=== PATIENT | female | born 1980 | race Caucasian/White ===

== ENCOUNTER 2022-05-03 10:05 | Outpatient (CLI) | payer OTHER, SELFPAY ==
[2022-05-03 10:50] LABS: Basophils Percent Auto 0.2 % (0.2-1.2); Eosinophils Absolute Auto 0.1 K/mm3 (0-0.3); Eosinophils Percent Auto 1.8 % (0-4.4); Hemoglobin 13.2 g/dL (12.0-15.0); Immature Granulocyte Absolute 0.01 K/mm3 (0.00-0.031); Immature Granulocyte Percent A 0.2 % (0-0.5); Lymphocytes Absolute Auto 1.69 K/mm3 (0.9-3.2); Lymphocytes Percent Auto 27.4 % (18.3-44.2); Mean Corpuscular HGB Conc 32.2 g/dl (32-36); Mean Corpuscular Hemoglobin 26.1 pg (26-34); Mean Corpuscular Volume 81.2 fl (80-100); Monocytes Absolute Auto 0.5 K/mm3 (0.1-0.6); Monocytes Percent Auto 7.6 % (2.6-8.5); Neutrophils Absolute Auto 3.9 K/mm3 (1.3-6.7); Neutrophils Percent Auto 62.8 % (45.5-73.1); Platelet Count Result 166 k/mm3 (150-375); Red Blood Count 5.05 M/mm3 (4.2-5.4); Red Cell Distribution Width 13.2 % (11.5-14.5); White Blood Count 6.2 K/mm3 (4.5-10.0)
== END 2022-05-03 10:06 | disposition home or self-care (01) ==
PROVIDERS: Obstetrics & Gynecology; PCP Family Medicine; Visit Provider Surgery Plastic and Reconstructive Surgery
DX: Z01.818 Encounter for other preprocedural examination (principal); R10.2 Pelvic and perineal pain
CPT/HCPCS: 36415; 85025; 86850; 86900; 86901

== ENCOUNTER 2022-05-11 17:20 | Inpatient (IN) | payer OTHER, SELFPAY ==
[2022-04-29 14:34] VITALS: BMI 30.9
--- NOTE | 2022-04-29 14:47 | PC.NURSE ---
Report to the Outpatient Waiting Room, entrance under the green pavilion located off [facility], at time 6:00 on date 05/11/22. Planned Procedure Time: 7:30. Time changes happen often and if your time is changed the preop area will call you the afternoon before. - You and your visitor will be asked to self-screen and do not enter if you have any COVID symptoms. - Only one visitor is requested with a max of two and NO children visitors are allowed at this time. - The patient visitor may be requested to leave or wait in car when not with patient due to distancing restrictions. - A mask is optional within the hospital. Patients may have clear liquids (water, carbonated beverages, clear teas, apple juice) until 3 hours prior to surgery (4:30) with a maximum of 20 ounces. - No food from midnight until time of surgery Take the following medications with a SIP of water the morning of surgery: CELEXA Medications to discontinue per physician: N/A Date to take last dose: N/A Please no make-up, nail turkmen, hairspray, perfume, deodorant, or body powder the day of surgery. No jewelry (including any body piercings) or valuables the day of surgery, leave them at home. Please take a shower or bath the night before, or the morning of, surgery with an antibacterial soap. Wear comfortable, loose fitting clothing. - Jewelry must be removed prior to entering the operating room. Rings and piercings that are not removed may be cut off. - The hospital will not accept responsibility for valuables. - Please leave all valuables, including medications, at home the day of surgery. If you are going home after surgery, a licensed route driver must drive you home. - NO public transportation without another adult if you receive anesthesia. - We recommend that an adult stay with you for 24 hours following discharge. - We also recommend that you do not drive, make important decision, drink alcoholic beverages, or take any drugs that were not prescribed by your health care provider for at least 24 hours after your discharge time. Follow any additional instructions given to you from your surgeon. If you or anyone in your household have experienced Covid symptoms in the past week, please notify your surgeon or the nurse liaison at the phone number below for possible testing. Telephone instructions given to PT - BASILIO JOSHUA and asked if any additional questions and then verbalized understanding. Patient advised to call surgeon office or pre surgery nurse liaison [phone] if any additional questions.
[2022-05-11] VITALS (13 sets, daily range): BP systolic 99–121; BP diastolic 54–92; PULSE 82–109; RESP 11–18; TEMP 36.2–37.8; O2SAT 98–100
--- NOTE | 2022-05-11 06:55 | P.PNAN_ITS ---
Anes - Initial Pre Proc Eval Procedure: Operation Date: 05/11/22 07:30 Proposed Procedures p Abdominoplasty with Liposuction - Rojas Lara MD s Total Abdominal Hysterectomy, Bilateral Salpingectomy, Possible Supracervical Hysterectomy with Bilateral Salpingectomy, Cystoscopy - Hawa Starr MD Date/Time: 05/11/22 06:55 Surgeon: Rojas Lara MD Pre Op Diagnosis: pelvic and perineal pain,endometrial cyst Patient Data Age: 41 Gender: F Height: 1.52 m Weight: 76.8 kg Last Vital Signs Temp 36.5 C 05/11/22 06:41 Pulse 94 05/11/22 06:41 Resp 16 05/11/22 06:41 BP 110/71 05/11/22 06:41 Pulse Ox 100 05/11/22 06:41 O2 Del Method Room Air 05/11/22 06:41 Allergies Allergy/AdvReac Type Severity Reaction Status Date / Time Pertussis Vaccines Allergy Fever Verified 05/11/22 06:36 Home Medications Medication Instructions Recorded Confirmed Type citalopram 20 mg tablet 20 mg PO DAILY 07/29/21 05/11/22 History cetirizine 10 mg tablet (Zyrtec) 10 mg PO DAILY 04/29/22 05/11/22 History docusate sodium 100 mg capsule 100 mg PO BID 04/29/22 05/11/22 History (Colace) dulaglutide 0.75 mg/0.5 mL 0.75 mg subcut WEEKLY 04/29/22 05/11/22 History subcutaneous pen injector (Trulicity) Patient hx anesthesia problems: none Family hx anesthesia problems: none Results Review: All pre-operative results and documents have been reviewed as part of the pre- operative evaluation. [facility] Past Medical History Medical History (Updated 05/11/22 @ 06:55 by Jose Manuel Rivera MD) Obesity PCOS (polycystic ovarian syndrome) Surgical History Surgical History (Updated 05/11/22 @ 06:57 by Jose Manuel Rivera MD) H/O hand surgery H/O laparoscopy History of section Social History Social History Smoking status: Former smoker Tobacco type: cigarettes Additional smoking assessment comments: SOME [employer]MO[employer] Alcohol intake: current Drinks per week: 3 Substance use: never Substance use type: does not use Living arrangements: with family Spiritual care concerns: No Anes - Eval Final PreProcedure Day of Procedure 05/11/22 06:55 Patient weight: obese Heart: regular rate and rhythm Lungs: clear to auscultation Airway: Mallampati scale class II Neurological: alert and oriented Last oral intake: >/= 8 hours ASA classification: II Emergent: no Anesthetic plan: proceed Anesthesia type and monitoring: general ETT and standard monitoring Results Review: All pre-operative results and documents have been reviewed as part of the pre- operative evaluation. Informed Consent: The patient's anesthetic plan and its attendant risks and benefits were discussed with the patient/family/POA. Questions were solicited and answers provided to the satisfaction of the patient/family/POA.
--- NOTE | 2022-05-11 07:00 | WPDHPUPDATE1 ---
History and Physical Update Update Date/Time: 05/11/22 07:00 History and Physical has been reviewed, including an updated exam of the patient. There are NO changes in the patient's condition. Risks, benefits, and alternatives have been discussed and questions answered. Patient agrees to proceed with procedure.
[2022-05-11] MEDS: LACTATED RINGERS 1,000 ML 30 ML IV CONT (07:05)
[2022-05-11] MEDS: ACETAMINOPHEN 500 MG TABLET 1000 MG PO (07:14)
[2022-05-11] MEDS: KETOROLAC 15 MG/ML VIAL (*BKC) IV PUSH ×2 (07:15→23:32)
[2022-05-11] MEDS: SCOPOLAMINE 1.5 MG PATCH TRANSDERM (07:15)
[2022-05-11 07:20] LABS: Urine Cotinine NEGATIVE
--- NOTE | 2022-05-11 07:31 | WPDHPUPDATE1 ---
History and Physical Update Update Date/Time: 05/11/22 07:31 Ms Black is here for procedure with Dr Paul combined with a open abdominal hysterectomy. She has a history of AUB/pelvic pain and laparoscopy in past showed anterior wall adhesions of uterus from bladder to fundus. She had a bladder injury with her last section which was repaired and she had a rogers catheter in for 1 week post srugery. She is aware of the possiblity of this happening again if adhesions are incorporataing the bladder tissue. Risk/benefits/alnternatives discussed. Plan is to move forward with abominal hysterectomy, possible supracervical hysterectomy and cystoscopy. Plan is also since its open to stay over night History and Physical has been reviewed, including an updated exam of the patient. There are NO changes in the patient's condition. Risks, benefits, and alternatives have been discussed and questions answered. Patient agrees to proceed with procedure.
[2022-05-11] MEDS: LACTATED RINGERS IRRIG 1,000 ML, LIDOCAINE HCL 1% LOCAL INJ 50 ML, EPINEPHrine HCL INJ ... INFILTRATE (07:51)
[2022-05-11] MEDS: BUPIVACAINE/EPINEPHRINE 0.5% 10 ML VIAL 60 ML INFILTRATE (07:51)
[2022-05-11] MEDS: ceFAZolin 2 GM/D5W 50 ML 2 GM/50 ML BAG IVPB (08:02)
[2022-05-11] MEDS: TRANEXAMIC ACID 1,000MG/ISO100 1,000 MG/100 ML BAG 200 MG IVPB (08:07)
[2022-05-11] MEDS: METHYLENE BLUE 0.5% INJ 10 ML AMPULE 20 ML IRRIGATION (10:25)
--- NOTE | 2022-05-11 11:06 | W.PM.PROC2 ---
Procedure Note - Detailed Date of Procedure 05/11/22 Pre-op Diagnosis pelvic and perineal pain,endometrial cyst Post-op Diagnosis Other (Pelvic and perineal pain, Uterine adhesions to anterior abdominal wall, endometrial cyst) Procedure Performed Total abdominal hysterectomy with bilateral salpingectomy and cystoscopy. Extensive lysis of adhesions of uters to anterior abdominal wall and omentum to uterus. Surgeon Hawa Starr MD Driver License Examiner Wily Cool MD Anesthesia General Indications Pelvic pain. She had history of cesearean section and with bladder injury after surgery and wore a rogers for one week. She came to ut with AUB and pelvic pain > Laparoscopy last summer revealed uterus adhesed fully to anterior abdominal wall so consented for hysterectomy. Findings Uterus, elongated cervix, adehesion of omentum and uterus to anterior abdominal wall. 1 hr of lysis of adhesions/dissection scar tissue were performed. Description of Procedure The patient was placed in dorsal lithotomy in Juice stirrups. A rogers catheter was placed. A Osiris uterine retractor was placed and 8cc of fluid was placed in the balloon. The tenaculum removed and the uterine manipulator was checked and in position so the drape pulled over and attention was then turned to the abdomen. 0.5% marcaine with epinephrine used to inject the skin and a scalpel used to incise the skin in a previously marked incision by the plastic surgeon who will be operating after ut. The incision was carried down to the fascia with Bovie cautery. There was significant density to the anterior abdominal wall from scarring from previous surgery. Once to fascia, incision in midline made with scalpel. It was carefully extended laterally with castellano scissors bilaterally. Kochers were used to grasp the fascia and tent upward. The anterior fascia plane was blurred. So we started inferiorly and dissected down the rectus muscle with bovie and blunt dissection. The anterior leaf was grasp and tented. The bovie was used to create a plane under the fascia and dissect laterally bilateral with bovie as well. The midline of rectus muscles was also densely scarred. A finger was used to enter in low and to the right where from previous laparoscopy I knew there was a window. The rectus muscles were dissected in the midline slowly down to the peritoneum. The bladder seemed to wrap toward the left and high. So with careful but lengthly dissection, the peritoneum was identified and slowly dissected towards the midline carefully avoiding injury the bladder . Once able to enter into the peritoneum on the right I could then wrap a finger around the back of the fundus and feel omentum adhesed. No bowel was involved. So the bovie was then used to take down the adhesions between the anterior abdominal wall and the uterus and come down over my finger through the omentum. This freed the right cornua. And similar this was done on the left. Once the fundus was freed, the lower uterine segment bladder flap which was high up on the anterior wall of the uterus, was carefully dissected downward with metzenbaum scissors. Once anatomy was restored. The uterus was elevated and tilted towards the right. The round ligament grasp to help pull the uterus medial. the left fallopian tube was grasp with mery and the fimbriae were identified. The 5mm ligasure used to cauterize through the tuboovarian ligament. Then along through the broad ligament to the left lateral side wall of the uterus. I then went through the round ligament and down the side wall with good hemostasis. The posterior leaf was then opened and carried down posteriorly and the anterior broad ligament was opened. The right fallopian tube was then exposed as the uterus was pulled towards the left. The fimbria identified and the tuboovarian ligament was cauterized with the 5mm ligasure. This was taken through the broad ligament to the lateral sidewall of the uterus. Th
[2022-05-11] MEDS: ceFAZolin SODIUM 1 GM VIAL IV PUSH (12:01)
--- NOTE | 2022-05-11 14:30 | W.PM.PROC2 ---
Procedure Note - Detailed Date of Procedure 05/11/22 Pre-op Diagnosis Skin laxity localized adipsoity Post-op Diagnosis Same Procedure Performed Progressive tension abdominoplasty with suction lipectomy Surgeon Rojas Lara MD Anesthesia General Findings Abdominal tissue removed 1,375.9 grams Lipoaspirate 2,100 cc Description of Procedure They are here today for abdominoplasty with suction lipectomy in conjunction with Gynecology Previously and again today the risks, benefits, alternatives were discussed in extensive detail. I wanted them to be very realistic about the risks involved as well as expectations. We discussed aftercare and what to monitor for. I was very upfront about the risks of wound breakdown leading to loss of skin, open wounds, and need for additional procedures with permanent abdominal deformity. We discussed DVT/PE risks and management. Made sure answered all of their questions to their satisfaction today and consent was obtained. They were marked in the preoperative holding area with their verification. The patient was taken to the operating room placed supine on the operating table. Anesthesia was provided by anesthesiology. A Rodríguez catheter was started. Gynecology At this point Total abdominal hysterectomy with bilateral salpingectomy and cystoscopy.? Extensive lysis of adhesions of uters to anterior abdominal wall and omentum to uterus. See Dr. Starr note for details. Abdomen After complete by Dr. Starr they were prepped and draped in a standard sterile 360 degree fashion. A surgical time-out was taken. I placed the patient in a flexed position to verify the upper and lower markings would reach. I then placed supine. A thorough abdominal examination was completed. Stab incisions were made and tumescent solution infiltrated. Once adequate time was allowed for hemostasis a 5mm basket cannula was utilized to complete suction lipectomy based on S.A.F.E. technique in multiple planes and passes. There were turned to bilateral lateral decubitus position with care taken to protect them for injury during this process. Suction lipectomy continued to result based on pre-operative planning, intra-operative observation, and rolling pinch test which were in full agreement. A 10 blade was used to make the upper incision. I continued dissection down to the level of fascia. Elevated just what was necessary for repair of the diastasis. I then again flexed the bed to verify the upper skin flap would reach the lower markings without tension. Once verified I placed her supine once again and a 10 blade used to make the lower incision. I elevated up to level the umbilicus and left the umbilicus intact on a well-vascularized stalk. The intervening tissue was removed. A 2 mm blunt cannula with 0.5% bupivicaine was injected deep to the fascia bilaterally. I plicated the diastasis recti using 0 PDO stratafix barbed suture. This was in 2 separate layers using 2 separate sutures as well. I repaired around the umbilicus leaving plenty of room for well-vascularized stalk of the umbilicus with 2-0 PDS. I also repaired lateral to the rectus using two layers of 0 PDO stratafix. The patient was flexed and starting from superior to inferior began plication using 2-0 Vicryl to obliterate all space in a standard progressive tension fashion. At the umbilicus I marked out the location of the skin and inset this with 3-0 Monocryl and 4-0 Vicryl. I continued the remainder of the plication using 2-0 Vicryl until I reached my lower planned scar line. I trimmed any excess skin of the upper flap making sure this was a tension-free closure. I then approximated using a 3 point suture with 2-0 Vicryl followed by 3-0 stratafix ,running subcuticular 4-0 Monocryl, and tissue glue. Fluffs and an abdominal binder were placed. The patient was transferred to the bed in a flexed position. Awoken and taken to the PACU without difficulty. All
--- NOTE | 2022-05-11 14:36 | SUR.OPER ---
Urine:300ml, EBL:150ml
[2022-05-11] MEDS: fentaNYL CITRATE INJ (*CRX) 100 MCG/2 ML VIAL 25 MCG IV PUSH ×6 (15:47→16:49)
--- NOTE | 2022-05-11 16:24 | SUR.PHASEI ---
Dr. Starr called this RN to obtain information on patient status. Patient c/o pain to hips at 5/10. Urine output 55ml in 90 minutes. Orders to increase ivf to 125ml/hr. Toradol 30mg ordered for pain x 1 now.
[2022-05-11] MEDS: KETOROLAC 30 MG/ML VIAL (*BKC) IV PUSH (16:32)
[2022-05-11] MEDS: METOCLOPRAMIDE HCL INJ 10 MG/2 ML VIAL IV PUSH (17:38)
[2022-05-11] MEDS: LACTATED RINGERS 1,000 ML 125 ML IV CONT (17:38)
[2022-05-11] MEDS: carisoprodoL (*CRX) 350 MG TABLET PO ×2 (17:41→23:32)
[2022-05-11] MEDS: oxyCODONE/ACETAMINOPHEN (*CRX) 5-325 MG TABLET PO (18:36)
[2022-05-11] MEDS: DOCUSATE SODIUM 100 MG CAPSULE PO (18:58)
[2022-05-11] MEDS: LIDOCAINE 5% PATCH 1 PATCH TRANSDERM (18:59)
[2022-05-11] MEDS: ENOXAPARIN 40 MG/0.4 ML SYRINGE SUB-Q (21:02)
[2022-05-12] MEDS: oxyCODONE/ACETAMINOPHEN (*CRX) 5-325 MG TABLET PO ×4 (03:40→21:21)
[2022-05-12 03:41] VITALS: BP 120/68; PULSE 118; RESP 18; TEMP 38.1; O2SAT 99
[2022-05-12] MEDS: carisoprodoL (*CRX) 350 MG TABLET PO ×3 (05:24→20:10)
[2022-05-12 05:44] LABS: Basophils Percent Auto 0.2 % (0.2-1.2); Hematocrit 30.9 % (37.0-47.0); Hemoglobin 10.1 g/dL (12.0-15.0); Immature Granulocyte Absolute 0.02 K/mm3 (0.00-0.031); Immature Granulocyte Percent A 0.2 % (0-0.5); Lymphocytes Absolute Auto 1.36 K/mm3 (0.9-3.2); Lymphocytes Percent Auto 14.4 % (18.3-44.2); Mean Corpuscular HGB Conc 32.7 g/dl (32-36); Mean Corpuscular Hemoglobin 27.1 pg (26-34); Mean Corpuscular Volume 82.8 fl (80-100); Mean Platelet Volume 10.8 fl (7.4-10.4); Monocytes Absolute Auto 0.9 K/mm3 (0.1-0.6); Monocytes Percent Auto 9.8 % (2.6-8.5); Neutrophils Absolute Auto 7.1 K/mm3 (1.3-6.7); Neutrophils Percent Auto 75.4 % (45.5-73.1); Platelet Count Result 152 k/mm3 (150-375); Red Blood Count 3.73 M/mm3 (4.2-5.4); Red Cell Distribution Width 13.7 % (11.5-14.5); White Blood Count 9.4 K/mm3 (4.5-10.0)
[2022-05-12 05:49] VITALS: TEMP 38.6
[2022-05-12 07:40] VITALS: BP 108/56; PULSE 119; RESP 16; TEMP 38.2; O2SAT 98
--- NOTE | 2022-05-12 07:49 | WPDPN ---
Progress Note: A&P Assessment and Plan (1) Skin laxity: Code(s): L57.4 - Cutis laxa senilis Status: Acute Assessment and Plan: Healing well after progressive tension abdominoplasty with suction lipectomy by and hysterectomy by Dr. Starr. Anticipate d/c home later today. Today we had a lengthy discussion about the care. What to monitor for. Acitivity limitations. What is an emergency and when to proceed to ER / dial 911. Call us with all other problems. Will see her back. She voiced a clear understanding. (2) MTHFR gene mutation: Code(s): Z15.89 - Genetic susceptibility to other disease Status: Acute (3) Exposure to phentermine: Code(s): T50.5X5A - Adverse effect of appetite depressants, initial encounter Status: Acute Assessment and Plan: She understands the importance of phentermine avoidance. (4) Postoperative fever: Code(s): R50.82 - Postprocedural fever Status: Acute Assessment and Plan: Etiology unclear. No respiratory concerns. Using IS (encourage use). Encourage ambulation. No signs of wound infection. No evidence of UTI. No signs / symptoms of DVT. Will monitor this morning with increased ambulation / IS. She does comment her kids have had some illlness. (5) Blurry vision, bilateral: Code(s): H53.8 - Other visual disturbances Status: Acute Assessment and Plan: Discontinued the scopolamine path (removed and washed area). Will monitor. Time Spent With Patient Time with patient: 25 - 35 minutes Subjective Date/time seen: 05/12/22 07:49 Interval history: She feels like she is doing well after progressive tension abdominoplasty by and hysterectomy by Matty. She has been febrile. Does not recall any concerns pre-op. No cough. No SOB. No CP. No dysuria. No calf tenderness. She states her temperature typically runs low actually. She also complains of some double vision. Does have a scopolamine patch in place. Review of Systems Review of Systems: All systems reviewed & are unremarkable except as noted in HPI and below Exam Narrative: A&O NOD Resp unlabored Abdomen is healing well. No signs of infection. No hematoma. No seroma. Good color / cap refill. No calf tenderness. Negative John's. No rebound tenderness. No tenderness when shaking the bed. Objective Data Vital Signs Vital Signs: Vital Signs - 24 hr 05/11/22 14:45 05/11/22 15:00 05/11/22 15:15 Temperature 36.2 C L 36.2 C L Pulse Rate 96 109 H 82 Respiratory Rate 12 11 L 17 Blood Pressure 102/54 L 120/92 H 121/76 Pulse Oximetry 100 100 100 Oxygen Delivery Simple Face Mask Simple Face Mask Simple Face Mask Oxygen Flow Rate 10 10 8 05/11/22 15:30 05/11/22 15:45 05/11/22 16:00 Temperature 36.2 C L Pulse Rate 109 H 96 107 H Respiratory Rate 15 13 12 Blood Pressure 119/88 109/78 118/83 Pulse Oximetry 100 100 100 Oxygen Delivery Simple Face Mask Simple Face Mask Room Air Oxygen Flow Rate 8 3 05/11/22 16:30 05/11/22 17:00 05/11/22 17:17 Temperature Pulse Rate 105 H 88 101 H Respiratory Rate 12 12 14 Blood Pressure 116/61 106/72 112/68 Pulse Oximetry 99 Oxygen Delivery Room Air Room Air Room Air Oxygen Flow Rate 05/11/22 19:03 05/11/22 17:30 05/11/22 19:00 Temperature 37.1 C 36.5 C Pulse Rate 98 93 Respiratory Rate 18 16 Blood Pressure 108/66 99/66 L Pulse Oximetry 99 100 Oxygen Delivery Room Air Oxygen Flow Rate 05/11/22 23:39 05/11/22 23:43 05/12/22 03:41 Temperature 37.8 C H 38.1 C H Pulse Rate 102 H 118 H Respiratory Rate 18 18 Blood Pressure 109/67 120/68 Pulse Oximetry 98 99 Oxygen Delivery Room Air Oxygen Flow Rate 05/12/22 04:00 05/12/22 05:49 Temperature 38.6 C H Pulse Rate Respiratory Rate Blood Pressure Pulse Oximetry Oxygen Delivery Room Air Oxygen Flow Rate Intake/Output Intake/Output: Intake & Output 05/09/22
[2022-05-12] MEDS: SIMETHICONE 80 MG TAB.CHEW PO (09:45)
[2022-05-12] MEDS: LORATADINE 10 MG TABLET PO (09:45)
[2022-05-12] MEDS: DOCUSATE SODIUM 100 MG CAPSULE PO ×2 (09:45→20:11)
[2022-05-12] MEDS: CITALOPRAM HYDROBROMIDE 20 MG TABLET PO (09:45)
[2022-05-12] MEDS: IBUPROFEN 600 MG TABLET (10:25)
--- NOTE | 2022-05-12 11:19 | PM.GYNPNOP ---
BOTTLING LINE OPERATOR - A/P Assessment and plan (1) Blurry vision, bilateral: Code(s): H53.8 - Other visual disturbances Status: Acute Assessment and Plan: will reevaluate 2-3 hrs after removal of scopolamine patch to see if improves/resolves (2) Postoperative fever: Code(s): R50.82 - Postprocedural fever Status: Acute Assessment and Plan: will do cxr if persists beyond 24 hrs after surgery. Encouraged ambulation. (3) MTHFR gene mutation: Code(s): Z15.89 - Genetic susceptibility to other disease Status: Acute Assessment and Plan: Patient is on Lovenox for DVT ppx (4) Pelvic pain: Code(s): R10.2 - Pelvic and perineal pain Status: Acute Assessment and Plan: s/p hysterectomy with dense lysis of adhesions. pelvic pain should improve post surgery given intraoperative findings. (5) H/O: hysterectomy: Code(s): Z90.710 - Acquired absence of both cervix and uterus Status: Acute (6) Aftercare following surgery of the genitourinary system: Code(s): Z48.816 - Encounter for surgical aftercare following surgery on the genitourinary system Status: Acute Plan POD#1 s/p PAULO, BS, Cysto, ANN-MARIE, and Abdominoplasty with lipo Plan: Will continue to follow temperatures. If continues to be febrile this afternoon, (24 hrs post surgery); then will order CXR. Discussed atelectasis and Incentive spirometer. Patient overall feels well and has started on lovenox. Pain is overall mild/moderate as to be expected. Urine output adequate and bladder nontender to palpation and patient is ambulatory. Encouraged continued movement. Some gasseous distension as well. Mylicon for this. No nausea and tolerating po. Will start toradol 10mg PO q6 hrs scheduled as well. Ok to continue lidocaine patches . Will continue to see if blurry vision improves. Says its mostly when looking at something close up. No other deficits/problems. We felt it was likely secondary to the scopolamine patch. Postoperative Procedures: Procedures Operation Date: 05/11/22 07:30 Actual Procedure Side Surgeon p Abdominoplasty with Liposuction Not Applicable Rojas Lara MD s Total Abdominal Hysterectomy, Bilateral Salpingectomy, Cystoscopy Bilateral Hawa Starr MD Time Spent With Patient Time: Total time spent is greater than 50% in coordination of care (as documented) at patient's floor/unit and/or counseling patient: Time with patient: 15 - 25 minutes BOTTLING LINE OPERATOR- PN:Subj Post-Op Subjective Date/time seen: 05/12/22 1030 Interval history: Doing well s/p progressive tension abdominoplasty by Dr Hansen and abdominal hysterectomy by Me. She has been febrile. Does not recall any concerns pre-op. No cough. No SOB. No CP. No dysuria. No calf tenderness. She states her temperature typically runs low actually. She is using her incentive spirometer. She also complains of some double vision. Dr Hansen discontinued scopolamine patch. Review of Systems Genitourinary: Comments: Cramping, in pelvis, burning in lower abdominal incision; some pain in her flanks Exam : General: Yes bladder normal to palpation (Bladder nontender internally. No pain with palpation of pelvic floor muscle) Skin: General skin exam: normal color, no rashes or lesions noted and other (incisions all look intact and normal with minimal bruising. ) Extrem: General: normal to inspection, full ROM, capillary refill normal and no calf tenderness BOTTLING LINE OPERATOR - PN: Obj Data Vital Signs Vital Signs: Vital Signs - 24 hr 05/11/22 14:45 05/11/22 15:00 05/11/22 15:15 Temperature 36.2 C L 36.2 C L Pulse Rate 96 109 H 82 Respiratory Rate 12 11 L 17 Blood Pressure 102/54 L 120/92 H 121/76 Pulse Oximetry 100 100 100 Oxygen Delivery Simple Face Mask Simple Face Mask Simple Face Mask Oxygen Flow Rate 10 10 8 05/11/22 15:30 05/11/22 15:45 05/11/22 16:00 Temperature 36.2 C L Pulse Rate 109 H 96 10
[2022-05-12] MEDS: KETOROLAC 10 MG TABLET PO (14:15)
--- NOTE | 2022-05-12 14:21 | P.PNAN_ITS ---
Anes - Prog Note Post-Op Date/Time: 05/12/22 14:21 Cardiovascular status: normal Respiratory status: normal Airway patency: baseline Mental status: baseline Post-Op hydration status: normal Vital Signs: Last Vital Signs Temp 38.2 C H 05/12/22 07:40 Pulse 119 H 05/12/22 07:40 Resp 16 05/12/22 07:40 BP 108/56 L 05/12/22 07:40 Pulse Ox 98 05/12/22 07:40 O2 Del Method Room Air 05/12/22 04:00 O2 Flow Rate 3 05/11/22 15:45 Pain Score (VAS): 05/21 I/O: Intake & Output 05/11/22 05/12/22 05/12/22 23:59 07:59 15:59 Intake Total 200 1800 700 Output Total 85 2800 125 Balance 115 -1000 575 Laboratory Tests 05/12/22 05:36 05/12/22 05:36 WBC 9.4 RBC 3.73 L Hgb 10.1 L D Hct 30.9 L MCV 82.8 MCH 27.1 MCHC 32.7 RDW 13.7 Plt Count 152 MPV 10.8 H Immature Gran % (Auto) 0.2 Neut % (Auto) 75.4 H Lymph % (Auto) 14.4 L [place] % (Auto) 9.8 H Eos % (Auto) 0.0 Baso % (Auto) 0.2 Lymph # (Auto) 1.36 [place] # (Auto) 0.9 H Eos # (Auto) 0.0 Baso # (Auto) 0.0 Abs Immat Gran (auto) 0.02 Absolute Neuts (auto) 7.1 H Absolute Nucleated RBC 0.0 Nucleated RBC % 0.0 Post-procedural complaints: none Patient Feedback: Patient satisfied with anesthetic care.
[2022-05-12 19:59] VITALS: BP 113/58; PULSE 98; RESP 18; TEMP 36.9; O2SAT 98
[2022-05-12] MEDS: ENOXAPARIN 40 MG/0.4 ML SYRINGE SUB-Q (21:22)
[2022-05-12 21:24] VITALS: BP 105/71; TEMP 37.1
[2022-05-13] MEDS: IBUPROFEN 600 MG TABLET PO (00:49)
[2022-05-13] MEDS: carisoprodoL (*CRX) 350 MG TABLET PO ×2 (00:50→05:21)
[2022-05-13 01:37] VITALS: TEMP 36.7
[2022-05-13] MEDS: oxyCODONE/ACETAMINOPHEN (*CRX) 5-325 MG TABLET PO (05:20)
[2022-05-13 08:03] VITALS: BP 93/55; PULSE 102; RESP 16; TEMP 37.1; O2SAT 95
[2022-05-13] MEDS: DOCUSATE SODIUM 100 MG CAPSULE PO (08:50)
[2022-05-13] MEDS: LORATADINE 10 MG TABLET PO (08:50)
[2022-05-13] MEDS: CITALOPRAM HYDROBROMIDE 20 MG TABLET PO (08:50)
--- NOTE | 2022-05-13 08:56 | WPDANESPN ---
Anes - Prog Note Post-Op Date/Time: 05/13/22 08:56 Cardiovascular status: normal Respiratory status: normal Airway patency: baseline Mental status: baseline Post-Op hydration status: normal Vital Signs: Last Vital Signs Temp 98.7 F 05/13/22 08:03 Pulse 102 H 05/13/22 08:03 Resp 16 05/13/22 08:03 BP 93/55 L 05/13/22 08:03 Pulse Ox 95 05/13/22 08:03 O2 Del Method Room Air 05/12/22 19:59 O2 Flow Rate 3 05/11/22 15:45 Pain Score (VAS): 0 I/O: Intake & Output 05/12/22 05/13/22 05/13/22 23:59 07:59 15:59 Intake Total 500 Balance 500 Laboratory Tests 05/12/22 05:36 Post-procedural complaints: none Patient Feedback: Patient satisfied with anesthetic care.
--- NOTE | 2022-05-13 09:20 | PM.GYNPNOP ---
[employer] - A/P Assessment and plan (1) Aftercare following surgery of the genitourinary system: Code(s): Z48.816 - Encounter for surgical aftercare following surgery on the genitourinary system Status: Acute Assessment and Plan: POD#2 PAULO, BS, Cysto /Abdominoplasty No heavy lifting for 6 weeks Pelvic rest for 6 weeks OK to shower today Plan POD#2 s/p PAULO, BS, Cysto ; abdominopasty PLAN: Discharge home. Rx sent to pharmacy on file. No heavy lifting 6 weeks Pelvic rest for 6 weeks OK to shower today Keep incisions covered and protected from clothing if becomes irritated. Ambulate frequently and take medications as prescribed. Postoperative Procedures: Procedures Operation Date: 05/11/22 07:30 Actual Procedure Side Surgeon p Abdominoplasty with Liposuction Not Applicable Rojas Lara MD s Total Abdominal Hysterectomy, Bilateral Salpingectomy, Cystoscopy Bilateral Hawa Starr MD Time Spent With Patient Time: Total time spent is greater than 50% in coordination of care (as documented) at patient's floor/unit and/or counseling patient: Time with patient: 15 - 25 minutes [employer]- PN:Subj Post-Op Subjective Date/time seen: 05/13/22 09:20 Interval history: Doing well s/p progressive tension abdominoplasty by Dr Hansen and abdominal hysterectomy by Me. No further fevers beyond first 24 hrs. The pain is manageable. She is ambulating/passing gas/and tolerating po Incision pain is mild/ hip pain is greater but still toleratble. Blurry visiion has improved. Review of Systems Constitutional: Comments: -F/S/C Eyes: Comments: -Visual changes today ENT: Comments: -cough/sore throat Cardiovascular: Comments: -palpitations/chest pain Respiratory: Comments: -SOB/cough Psychiatric: Comments: -depression/anxiety Exam Narrative: GEN: SEFERINO NEVES HENMT: Other: NC/AT Eyes: Other: Vision intact Neck: Other: FROM Resp: Other: -wheeze/-cough Cardio: Other: normal rate/rhythm GI: Other: soft, NT, incision c/d/i. Flaky blood around umbilicus and incision. No Bruising visible : Other: Vaginal exam deferred today but yesterday nontender to palpation Extrem: Other: -swelling [employer] - PN: Obj Data Vital Signs Vital Signs: Vital Signs - 24 hr 05/12/22 10:25 05/12/22 14:17 05/12/22 19:59 Temperature 36.9 C Pulse Rate 98 Respiratory Rate 18 Blood Pressure 113/58 L Pulse Oximetry 98 Oxygen Delivery Room Air Room Air 05/12/22 19:59 05/12/22 21:24 05/13/22 01:37 Temperature 37.1 C 36.7 C Pulse Rate Respiratory Rate Blood Pressure 105/71 Pulse Oximetry Oxygen Delivery Room Air 05/13/22 08:03 Temperature 37.1 C Pulse Rate 102 H Respiratory Rate 16 Blood Pressure 93/55 L Pulse Oximetry 95 Oxygen Delivery Intake/Output Intake/Output: Intake & Output 05/10/22 05/11/22 05/12/22 05/13/22 23:59 23:59 23:59 23:59 Intake Total 700 3600 Output Total 485 3025 Balance 215 575 Meds/Results Medications: Active Medications Generic Name Dose Route Start Last Admin Trade Name Freq PRN Reason Stop Dose Admin Bisacodyl 10 mg 05/11/22 17:20 Bisacodyl 10 Mg Suppository RECTAL ONCE PRN Constipation Carisoprodol 350 mg 05/11/22 18:00 05/13/22 05:21 Carisoprodol (*Crx) 350 Mg Tablet PO 350 mg Q6HR NANDO Administration Citalopram Hydrobromide 20 mg 05/12/22 09:00 05/13/22 08:50 Citalopram Hydrobromide 20 Mg Tablet PO 20 mg DAILY NANDO Administration Diazepam 5 mg 05/11/22 17:20 Diazepam (*Crx) 5 Mg Tablet PO TID PRN Anxiety Docusate Sodium 100 mg 05/11/22 17:20 05/13/22 08:50 Docusate Sodium 100 Mg Capsule PO 100 mg BID NANDO Administration Enoxaparin Sodium 40 mg 05/11/22 21:00 05/12/22 21:22 Enoxaparin 40 Mg/0.4 Ml Syringe SUB-Q 40 mg HS NANDO Administration Ibuprofen 600
--- NOTE | 2022-05-24 10:00 | PM.DS ---
DS: Admitting Diagnosis Discharge Date 05/13/22 Admitting Diagnosis PELVIC PAIN/ Scheduled surgery DS: Discharge Diagnosis Discharge Diagnosis (1) Pelvic pain: Code(s): R10.2 - Pelvic and perineal pain Status: Acute Assessment and Plan: Pain improving but has just had surgery. will reassess at follow up visit (2) H/O: hysterectomy: Code(s): Z90.710 - Acquired absence of both cervix and uterus Status: Acute Assessment and Plan: s/p hysterectomy, PAULO, BS, cystoscopy Doign well. Ok for discharge home Fever resolved after 48 hrs post op (3) Skin laxity: Code(s): L57.4 - Cutis laxa senilis Status: Acute Assessment and Plan: s/p surgical correction. Healing well so far. (4) Postoperative fever: Code(s): R50.82 - Postprocedural fever Status: Acute Assessment and Plan: likely due to extreme inflammation from procedures and adhesiolysis. No sign of pneumonia, uti, or skin infection at this time (5) Blurry vision, bilateral: Code(s): H53.8 - Other visual disturbances Status: Acute Assessment and Plan: Resolved. Possibly due to scopolamine patch/anesthesia medications. Will continue to follow Plan OK to discharge home POD #2. Follow up in office in 1-2 weeks as scheduled DS: Summary Hospital Course Reason for hospitalization: Admitted for PAULO, BS, cysto. Also had abdominoplasty and liposuction. Hospital Course: Post op course complicated by fever but given dense uteirne adhesions to anterior abdominal wall as likely culprit did not find any other source for fever Preop antibiotics were given and no furtehr antibiotics necessary Vitals were stable OK to discharge home POD #2 with pain controlled, ambulatory, urinating and tolering PO. Time Spent with Patient Time attestation: Total time spent providing and/or coordinating discharge services: 45 m in Exam Const: General: cooperative, healthy appearing and comfortable HENMT: Other: NC/AT Eyes: Other: PERRLA Neck: Other: FROM all limbs Chest: Other: CTA bilatera. Nontender chest Resp: Other: Normal respiratory effort. No cough Cardio: Other: Normal rate/rhytthm GI: Other: soft, appropirately tender. incision c/d/i with glue topically. No bruising noted : Other: Bimanual exam normal. NOntender bladder/cuff Skin: Other: Appears intact. Extrem: Other: FROM all limbs, no edema Psych: Other: AxOx3 DS: Data Data Completed and Pending Completed studies during hospitalization: Pending at discharge 05/11/22 10:07 Surgical [PTH] Routine Procedures/Treatments: Total abdominal hysterectomy, bilateral salpingectomy, cystoscopy Abdominoplasty and liposuction Discharge Plan Discharge Attending physician on discharge: Hawa Starr Consulting providers: Wily Cool ; Julio Lara Discharging Clinician: Hawa Starr Anticipated Discharge Date/Time: 05/13/22 09:36 Patient Disposition: Home, Self-Care Activity: may shower, no straining and pelvic rest Diet: regular Wound Care Instructions: remove dressing to shower and incision open to air Discharge Instructions: POST OPERATIVE DISCHARGE INSTRUCTIONS JULIO LARA M.D. [facility] [address] [place] [address] [address] for 24 hours after anesthesia and while you are taking pain medication. Take all prescribed medication as directed Diet as tolerated. No lifting or activity that raises blood pressure for 48 hours. Regular walking / ambulation. May shower 24 hours after surgery. Once you shower do not take pain medication before showering as the combination of medication and heat may cause you to feel dizzy or pass out. No pools or tubs for 2 weeks. Slowly stand up straight as tolerated. No straining or lifting more than 20 pounds. If no bowel moveme
== END 2022-05-13 10:35 | disposition home or self-care (01) | DRG 358 ==
LOC: ANHOB2 17:22
PROVIDERS: Surgery Plastic and Reconstructive Surgery; Admitting Provider Obstetrics & Gynecology; PCP Family Medicine; Visit Provider Obstetrics & Gynecology
PROC: 0JB80ZZ Excision of Abdomen Subcutaneous Tissue and Fascia, Open Approach (ICD-10-PCS; principal; 2022-05-11 07:30)
PROC: 0UT94ZZ Resection of Uterus, Percutaneous Endoscopic Approach (ICD-10-PCS; 2022-05-11 07:30)
DX: R10.2 Pelvic and perineal pain (principal); N85.8 Other specified noninflammatory disorders of uterus; N73.6 Female pelvic peritoneal adhesions (postinfective); E65 Localized adiposity; L57.4 Cutis laxa senilis; R50.82 Postprocedural fever; H53.8 Other visual disturbances; T41.45XA Adverse effect of unspecified anesthetic, initial encounter; T50.995A Adverse effect of other drugs, medicaments and biological substances, initial encounter; Z15.89 Genetic susceptibility to other disease
CPT/HCPCS: 36415; 80307; 85025; 88307; A9270; J0171; J0690; J1170; J1650; J1885; J2250; J2370; J2405; J2704; J2710; J2765; J3010; J7120; Q9968